=== PATIENT | female | born 1985 | race Caucasian/White ===

== ENCOUNTER → 2022-04-08 | Outpatient (CLI) | payer OTHER | LOC: M WHC 11:42 | PROVIDERS: ATTEND Registered Nurse | DX: D25.9 Leiomyoma of uterus, unspecified (principal) ==

== ENCOUNTER → 2022-04-22 | Outpatient (CLI) | payer OTHER | LOC: M WHC 08:34 → EDUNIT# 09:00 | PROVIDERS: ATTEND Registered Nurse | DX: N63.14 Unspecified lump in the right breast, lower inner quadrant (principal) ==

== ENCOUNTER → 2022-05-29 | Outpatient (CLI) | payer OTHER | LOC: M RAD 10:39 | PROVIDERS: ATTEND Registered Nurse | DX: R22.9 Localized swelling, mass and lump, unspecified (principal) ==

== ENCOUNTER → 2022-07-07 | Outpatient (REF) | payer OTHER | LOC: M LAB REF 16:44 | PROVIDERS: ATTEND Registered Nurse | DX: R50.9 Fever, unspecified (principal) ==

== ENCOUNTER 2022-07-08 19:05 | Emergency (ER) | payer OTHER ==
[~2022-07-08] VITALS: Ht 160 cm; Wt 63.8 kg
[2022-07-08 19:06] VITALS: BP 141/64
[2022-07-08 20:28] LABS: HEMATOCRIT 38.5 % (36.0-47.0); HEMOGLOBIN 12.7 g/dl (12.0-15.5); MEAN CORPUSCULAR HEMOGLOBIN 29.5 pg (27.0-33.0); MEAN CORPUSCULAR VOLUME 89.3 fl (80.0-96.0); PLATELET COUNT, AUTOMATED 111 10^3/uL (150-450); RED BLOOD COUNT 4.31 10^6/uL (4.00-5.40); WHITE BLOOD COUNT 12.9 10^3/uL (4.0-10.0)
[2022-07-08 20:56] LABS: LIPASE 35 U/L (12-53)
[2022-07-08 20:58] LABS: ALBUMIN 3.4 G/DL (3.2-5.2); ALKALINE PHOSPHATASE 574 U/L (46-116); ALT/SGPT 350 U/L (7.0-40); AST/SGOT 162 U/L (<34); BILIRUBIN,DIRECT 1.8 MG/DL (<0.4); BILIRUBIN,TOTAL 2.6 MG/DL (0.3-1.2); BLOOD UREA NITROGEN 5 MG/DL (9-23); CALCIUM LEVEL 8.9 MG/DL (8.5-10.1); CARBON DIOXIDE LEVEL 27 MMOL/L (20-31); CHLORIDE LEVEL 104 MMOL/L (98-107); CREATININE FOR GFR 0.67 MG/DL (0.55-1.30); GLOMERULAR FILTRATION RATE > 60.0 (>60); GLUCOSE, FASTING 129 MG/DL (60-100); POTASSIUM SERUM 4.1 MMOL/L (3.5-5.1); SODIUM LEVEL 137 MMOL/L (136-145); TOTAL PROTEIN 6.8 G/DL (5.7-8.2)
[2022-07-08 20:59] LABS: HCG, SERUM QUALITATIVE NEGATIVE (NEGATIVE)
[2022-07-08 21:00] LABS: ATYPICAL LYMPH 12 % (0-5); EOSINOPHILS 1 % (0-3); LYMPHOCYTES 55 % (16-44); METAMYELOCYTES 1 % (0-0); MONOCYTES 9 % (0-5); NEUTROPHILS 21 % (28-66); PLATELET ESTIMATE DECREASED (NORMAL)
[2022-07-08 21:02] LABS: SMUDGE CELLS 1+
[2022-07-08 22:14] LABS: MONO REFLEX EBV COMP POSITIVE (NEGATIVE)
[2022-07-08 22:33] LABS: HEPATITIS B SURFACE ANTIGEN NEGATIVE (NEGATIVE)
[2022-07-08 22:53] LABS: HEPATITIS B CORE ANTIBODY IGM NEGATIVE (NEGATIVE)
== END 2022-07-09 00:18 | disposition home or self-care (01) ==
LOC: M ED 19:05
DX: B27.90 Infectious mononucleosis, unspecified without complication (principal); R74.01 Elevation of levels of liver transaminase levels; F10.10 Alcohol abuse, uncomplicated; Z88.1 Allergy status to other antibiotic agents

== ENCOUNTER → 2022-10-28 | Outpatient (CLI) | payer OTHER | LOC: M WHC 07:42 | PROVIDERS: ATTEND Obstetrics & Gynecology | DX: N60.01 Solitary cyst of right breast (principal) ==

== ENCOUNTER → 2023-10-06 | Outpatient (CLI) | payer OTHER | LOC: M RAD 13:16 | PROVIDERS: ATTEND Registered Nurse | DX: R22.9 Localized swelling, mass and lump, unspecified (principal) ==

== ENCOUNTER → 2024-05-23 | Outpatient (CLI) | payer OTHER ==
[~2024-05-23] MED LIST: LIDOCAINE 1% MDV 20ML VIAL As Ordered ONE
[2024-05-23 10:50] VITALS: TEMP 97.1
[2024-05-23 11:15] VITALS: BP 132/69; O2SAT 99
== END ==
LOC: M IRPRO 10:39
PROVIDERS: ATTEND Surgery
DX: M79.81 Nontraumatic hematoma of soft tissue (principal); D36.7 Benign neoplasm of other specified sites

== ENCOUNTER → 2024-06-22 | Outpatient (CLI) | payer OTHER | LOC: M WHC 07:34 | PROVIDERS: ATTEND Registered Nurse | DX: R10.2 Pelvic and perineal pain (principal) ==